=== PATIENT | female | born 1975 | race Caucasian/White ===

== ENCOUNTER → 2021-02-20 08:20 | Outpatient (CLI) | payer OTHER, SELFPAY ==
[2021-02-20 19:00] LABS: SARS-CoV-2 RNA PCR Negative
== END ==
PROVIDERS: PCP Internal Medicine; Visit Provider Internal Medicine
DX: Z20.822 Contact with and (suspected) exposure to COVID-19 (principal)
CPT/HCPCS: C9803; U0003; U0005

== ENCOUNTER 2021-02-20 11:19 | Outpatient (CLI) | payer OTHER, SELFPAY ==
--- NOTE | ~2021-02-20 | XR_ITS ---
XR chest 2V 02/20/2021 11:46 Indication: Shortness of breath. Cough. Low-grade fever. Procedure: 2 view chest Comparison: No prior studies for comparison. Findings: Bibasilar airspace disease may represent atelectasis or pneumonia. The lungs are hyperinfla iván which is consistent with, but not diagnostic of chronic obstructive pulmonary disease. Heart size normal. No edema or pneumothorax. Impression: 1: Bibasilar infiltrates posteriorly, best seen on lateral view, atelectasis versus developing pneumo karrie. Reviewed, dictated and finalized at location A. Impression: 1: Bibasilar infiltrates posteriorly, best seen on lateral view, atelectasis ve rsus developing pneumonia.
== END 2021-02-20 11:20 | disposition home or self-care (01) ==
LOC: ANHIMG 11:26
PROVIDERS: PCP Internal Medicine; Visit Provider Internal Medicine
DX: R06.02 Shortness of breath (principal)
CPT/HCPCS: 71046

== ENCOUNTER → 2021-05-10 08:34 | Outpatient (CLI) | payer OTHER, SELFPAY ==
[2021-05-10 13:15] LABS: Influenza Control Positive
[2021-05-10 20:25] LABS: SARS-CoV-2 RNA PCR Negative
== END ==
PROVIDERS: PCP Internal Medicine; Visit Provider Internal Medicine
DX: R09.89 Other specified symptoms and signs involving the circulatory and respiratory systems (principal); Z20.822 Contact with and (suspected) exposure to COVID-19
CPT/HCPCS: 87804; C9803; U0003; U0005

== ENCOUNTER → 2021-05-29 09:18 | Outpatient (CLI) | payer OTHER, SELFPAY ==
[2021-05-29 19:04] LABS: SARS-CoV-2 RNA PCR Negative
== END ==
PROVIDERS: PCP Internal Medicine; Visit Provider Nurse Practitioner
DX: R68.89 Other general symptoms and signs (principal); Z20.822 Contact with and (suspected) exposure to COVID-19
CPT/HCPCS: C9803; U0003; U0005

== ENCOUNTER → 2021-06-12 10:42 | Outpatient (CLI) | payer OTHER, SELFPAY ==
[2021-06-12 20:23] LABS: SARS-CoV-2 RNA PCR Positive
== END ==
PROVIDERS: PCP Internal Medicine; Visit Provider Internal Medicine
DX: U07.1 COVID-19 (principal)
CPT/HCPCS: C9803; U0003; U0005

== ENCOUNTER 2021-07-22 09:52 | Outpatient (CLI) | payer OTHER, SELFPAY ==
--- NOTE | ~2021-07-22 | MM_ITS ---
EXAMINATION: MM screening [facility] BI w lázaro HISTORY: Screening mammogram TECHNIQUE: Craniocaudal and mediolateral oblique 3-D tomosynthesis images were obtained and synthetic 2-D images were generated. Bilateral rotated lateral cc views. CAD analysis was submitted and interp reted. COMPARISON: 03/2019 bilateral screening mammogram BREAST PARENCHYMAL COMPOSITION: The breasts are heterogeneously dense, which may obscure small masses . FINDINGS: A 4.5 mm circumscribed opacity is noted in the posterior central mid left breast (ML Tomosy nthesis image 22/48). Diagnostic left mammogram and left breast ultrasound examination are recommende d. Otherwise there is no evidence of suspicious mass, calcification, or architectural distortion to sugg est malignancy in either breast. Occasional punctate benign appearing microcalcifications. There has been no other suspicious interval change. IMPRESSION: 1. 4.5 mm circumscribed mass is suggested in the posterior mid left breast 2. Diagnostic left mammogram and left breast ultrasound examination are recommended BI-RADS Category 0: Incomplete: Needs additional imaging evaluation. Reviewed, dictated and finalized at location A. IFIED LACTATION EDUCATOR IMPRESSION: 1. 4.5 mm circumscribed mass is suggested in the posterior mid left breast 2. Diagnostic left mammogram and left breast ultrasound examination are recomme nded BI-RADS Category 0: Incomplete: Needs additional imaging evaluation.
== END 2021-07-22 09:53 | disposition home or self-care (01) ==
LOC: ANHIMG 09:53
PROVIDERS: PCP Internal Medicine; Visit Provider Internal Medicine
DX: Z12.31 Encounter for screening mammogram for malignant neoplasm of breast (principal); R92.8 Other abnormal and inconclusive findings on diagnostic imaging of breast
CPT/HCPCS: 77063; 77067

== ENCOUNTER 2021-08-07 12:45 | Outpatient (CLI) | payer OTHER, SELFPAY ==
--- NOTE | ~2021-08-07 | MMUS_ITS ---
EXAMINATION: MM diagnostic [facility] LT w lázaro, US breast LT complete HISTORY: Follow-up left breast asymmetries TECHNIQUE: Additional 3-D tomosynthesis images of the left breast were performed and synthetic 2-D im ages were generated. CAD analysis was submitted and interpreted. High resolution complete left breast ultrasound was performed. COMPARISON: Comparison to multiple prior studies sequentially, with oldest reviewed study dated 03/06. BREAST PARENCHYMAL COMPOSITION: The breasts are heterogenously dense, which may obscure small masses. FINDINGS: MAMMOGRAPHIC FINDINGS: There are no suspicious masses, calcifications or architectural distortion in the left breast to sugg est malignancy. ULTRASOUND: Complete US of all 4 quadrants of the left breast and retroareolar region was reviewed. There are cys ts at 1:00 measuring 7 mm and 11:00 measuring 4 mm. Mildly prominent ducts noted. No suspicious cristino s to suggest malignancy. IMPRESSION: 1. No evidence for malignancy in the left breast. 2. Routine yearly screening mammogram and regular clinical breast examination are recommended. BI-RADS Category 2: Benign finding(s). Reviewed, dictated and finalized at location A. D SPECIALIST IMPRESSION: 1. No evidence for malignancy in the left breast. 2. Routine yearly screening mammogram and regular clinical breast examination a re recommended. BI-RADS Category 2: Benign finding(s).
== END 2021-08-07 12:46 | disposition home or self-care (01) ==
LOC: ANHIMG 12:46
PROVIDERS: PCP Internal Medicine; Visit Provider Internal Medicine
DX: R92.8 Other abnormal and inconclusive findings on diagnostic imaging of breast (principal); N60.02 Solitary cyst of left breast
CPT/HCPCS: 76641; 77061; 77065; G0279

== ENCOUNTER → 2022-07-26 14:30 | Outpatient (CLI) | payer OTHER, SELFPAY ==
--- NOTE | ~2022-07-26 | US_ITS ---
EXAMINATION: US pelvic complete w TV DATE: 07/26/2022 14:55 INDICATION: Pelvic pain Comparison:No prior studies for comparison. TECHNIQUE: Multiple transabdominal and endovaginal sonographic images of the pelvis performed. FINDINGS: The uterus measures 7.3 x 3.5 x 4.9 cm. The endometrial complex measures 5 mm. The right ovary measures 2 x 1.9 x 1.4 cm and the left ovary measures 2.2 x 1.7 x 1.4 cm. There are small follicles in each ovary. Normal doppler signal in both ovaries. There is no free fluid in the pelvis. There are no abnormal masses seen on either side. IMPRESSION: 1. Normal pelvic ultrasound. Reviewed, dictated and finalized at location A. 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
== END ==
PROVIDERS: PCP Registered Nurse; Visit Provider Registered Nurse
DX: R10.2 Pelvic and perineal pain (principal)
CPT/HCPCS: 76830; 76856

== ENCOUNTER 2022-09-26 14:30 | Outpatient (CLI) | payer OTHER, SELFPAY ==
--- NOTE | ~2022-09-26 | MM_ITS ---
EXAMINATION: MM screening [facility] BI w lázaro HISTORY: Screening mammogram TECHNIQUE: Craniocaudal and mediolateral oblique 3-D tomosynthesis images were obtained and synthetic 2-D images were generated. Bilateral rotated lateral CC views. ..CAD analysis was submitted and inte rpreted. COMPARISON: 08/07/2021 diagnostic left mammogram and complete left breast ultrasound BREAST PARENCHYMAL COMPOSITION: The breasts are heterogeneously dense, which may obscure small masses . FINDINGS: There is no evidence of suspicious mass, calcification, or architectural distortion to sugg est malignancy in either breast. There has been no suspicious interval change. IMPRESSION: 1. No mammographic evidence of malignancy. 2. Recommend routine screening mammography in one year. BI-RADS Category 1: Negative Reviewed, dictated and finalized at location A.
== END 2022-09-26 14:31 | disposition home or self-care (01) ==
LOC: ANHIMG 14:31
PROVIDERS: PCP Registered Nurse; Visit Provider Registered Nurse
DX: Z12.31 Encounter for screening mammogram for malignant neoplasm of breast (principal)
CPT/HCPCS: 77063; 77067

== ENCOUNTER 2024-03-19 15:25 | Outpatient (CLI) | payer OTHER, SELFPAY ==
--- NOTE | ~2024-03-19 | XR_ITS ---
EXAMINATION: XR chest 2V 03/19/2024 15:53 INDICATION: Cough PROCEDURE: 2 view chest COMPARISON: 02/20/2021 FINDINGS: The lungs are clear. The cardiomediastinal silhouette is within normal limits. There are no pleural effusions. There is no pneumothorax suspected. IMPRESSION: 1: NO ACUTE CARDIOPULMONARY DISEASE. Reviewed, dictated and finalized at location B.
== END 2024-03-19 15:26 | disposition home or self-care (01) ==
LOC: ANHIMG 15:27
PROVIDERS: PCP Nurse Practitioner Family; Visit Provider Nurse Practitioner Family
DX: R05.9 Cough, unspecified (principal)
CPT/HCPCS: 71046

== ENCOUNTER 2024-11-25 15:13 | Outpatient (CLI) | payer OTHER, SELFPAY ==
--- NOTE | ~2024-11-25 | MM_ITS ---
EXAMINATION: MM screening [facility] BI w lázaro HISTORY: Screening mammogram TECHNIQUE: Craniocaudal and mediolateral oblique 3-D tomosynthesis images were obtained and synthetic 2-D images were generated. CAD analysis was submitted and interpreted. COMPARISON: 09/26/2022, 07/22/2021, 03/06/2019 BREAST PARENCHYMAL COMPOSITION:Dense: The breasts are heterogeneously dense, which may obscure small masses. FINDINGS: There is a asymmetry in the subareolar right breast on CC view. No parenchymal abnormality of the left breast seen. No suspicious microcalcifications. IMPRESSION: Right subareolar breast asymmetry on CC view. Spot compression view, and possibly ultrasound, recomme nded for further evaluation. BI-RADS Category 0: Incomplete: Needs additional imaging evaluation. Reviewed, dictated and finalized at [facility]. IMPRESSION: Right subareolar breast asymmetry on CC view. Spot compression view, and possib ly ultrasound, recommended for further evaluation. BI-RADS Category 0: Incomplete: Needs additional imaging evaluation.
== END 2024-11-25 15:14 | disposition home or self-care (01) ==
LOC: ANHIMG 15:17
PROVIDERS: PCP Nurse Practitioner Family; Visit Provider Nurse Practitioner Family
DX: Z12.31 Encounter for screening mammogram for malignant neoplasm of breast (principal); R92.8 Other abnormal and inconclusive findings on diagnostic imaging of breast
CPT/HCPCS: 77063; 77067

== ENCOUNTER 2024-12-21 12:11 | Outpatient (CLI) | payer OTHER, SELFPAY ==
--- NOTE | ~2024-12-21 | US_ITS ---
EXAMINATION: MM diagnostic [place] RT w lázaro and US breast RT limited INDICATION: 49-year old female; BI-RADS 0, callback to evaluate right subareolar asymmetry. COMPARISON: 11/25/2024 TECHNIQUE: Digital breast tomosynthesis True lateral and CC and MLO views of the RIGHT breast were ob tained with computer-aided detection to assist in interpretation of the study. MAMMOGRAM FINDINGS: The breasts are heterogeneously dense, which may obscure small masses. The asymmetry of concern in the subareolar region partially persists on spot compression views. Ultra sound was obtained for further evaluation. RIGHT BREAST ULTRASOUND FINDINGS: Targeted evaluation of the subareolar location was completed. There are normal appearing fluid filled prominent ducts seen. No suspicious solid or cystic mass. IMPRESSION: No mammographic or sonographic evidence of breast malignancy. RECOMMENDATION: Routine annual screening mammography in one year BI-RADS Category 2: Benign finding(s). Reviewed, dictated and finalized at location B.
--- NOTE | ~2024-12-21 | MM_ITS ---
EXAMINATION: MM diagnostic [place] RT w lázaro and US breast RT limited INDICATION: 49-year old female; BI-RADS 0, callback to evaluate right subareolar asymmetry. COMPARISON: 11/25/2024 TECHNIQUE: Digital breast tomosynthesis True lateral and CC and MLO views of the RIGHT breast were ob tained with computer-aided detection to assist in interpretation of the study. MAMMOGRAM FINDINGS: The breasts are heterogeneously dense, which may obscure small masses. The asymmetry of concern in the subareolar region partially persists on spot compression views. Ultra sound was obtained for further evaluation. RIGHT BREAST ULTRASOUND FINDINGS: Targeted evaluation of the subareolar location was completed. There are normal appearing fluid filled prominent ducts seen. No suspicious solid or cystic mass. IMPRESSION: No mammographic or sonographic evidence of breast malignancy. RECOMMENDATION: Routine annual screening mammography in one year BI-RADS Category 2: Benign finding(s). Reviewed, dictated and finalized at location B.
--- OUTSIDE RECORDS SUMMARY | 2024-12-21 12:13 | XMS_ITS | Patient Health Record ---
Author Organization [facility] [employer] Address [address] [place] [address] Care Team Providers Care Real Estate Transaction Manager Name Role Phone Leyla Palmer APRN Primary Care Provider Nova Hoyos Unavailable [phone] Allergies Allergen (clinical drug ingredient) Drug/Non Drug Allergy documented on EMR Reaction Allergy Type Onset Date Status bupropion Bupropion Unknown Drug Allergy 10/11/2023 Active Reason For Referral No Information Medications Medication SIG (Take, Route, Frequency, Duration) Notes Start Date End Date Status Levothyroxine Sodium 100 MCG Oral 10/11/2023 Unknown Rosuvastatin Calcium 5 MG Oral 10/11/2023 Unknown Lisinopril 20 MG Oral 10/11/2023 Un known Gabapentin 600 MG Oral 10/11/2023 U nknown Sertraline HCl 25 MG Oral Active traZODone HCl 50 MG 1 tablet at bedtime as needed Orally Once a day; Duration: 90 days Active LORazepam 1 MG 1 tablet Oral three times a day; Duration: 30 days As needed 12/16/2024 Active Social History Tobacco Use: Social History Observation Description Date Details (start date - stop date) Current Smoker NA - NA Sex Assigned At : Social History Observation Description Sex Assigned At Female Tobacco Control (Standard) Question Answer Notes Tobacco use: Current smoker How often do you smoke cigarettes? Every day How many cigarettes a day do you smoke? 11-20 How soon after you wake up do you smoke your fir st cigarette? Within 5 minutes Are you interested in quitting? Not ready to jesus manuel t Problems Problem Type SNOMED Code ICD Code Onset Dates Problem Status W/U Status Risk Notes Problem Generalized anxiety disorder (26112812) Generalized anxiety disorder (F41.1) Active confirmed Encounters Encounter Location Date Provider Diagnosis [facility] [address] [address] 06/12/2024 Nova Kurnaseem Generalized anxiety disorder F41.1 [place] [address] [address] 12/30/2023 Nova Kurilla [place] [address] [address] 10/19/2024 Nova Kurilla Generalized anxiety disorder F41.1 [facility] [address] [place] [address] [address] [facility] [address] [place] [address] 12/01/2024 Nova Kurnaseem Generalized anxiety disorder F41.[address] [address] 12/16/2024 Nova Kurnaseem Generalized anxiety disorder F41.[address] [address] 10/19/2024 Nova Kurilla Generalized anxiety disorder F41.1 Assessments Encounter Date Diagnosis (ICD Code) Assessment Notes Treatment Notes Treatment Clinical Notes Section Notes 06/12/2024 Generalized anxiety disorder (ICD-10 - F41.1) Discussed and educated pt regarding benzodiazepines are generally not intended for prolonged use and that use can cause tolerance, dependence, depression, and associated memory issues including dementias (this list is not exhaustive). Benzodiazepine use is generally not recommended concurrently with pain medications and/or other controlled substances due to increased risks of profound sedation, respiratory depression, coma, and even . They are not to be used with any alcohol, as this combination can be lethal. 10/19/2024 Generalized anxiety disorder (ICD-10 - F41.1) 10/19/2024 Generalized anxiety disorder (ICD-10 - F41.1) 12/01/2024 Generalized anxiety disorder (ICD-10 - F41.1) 12/16/2024 Generalized anxiety disorder (ICD-10 - F41.1) 06/12/2024 Other Increase lorazepam to TID PRN due to recent stressors triggering increased anxiety, discussed this is a temporary medication adjustment and plan to decrease in the future. Patient educated on all medications including potential benefits, side effects, risks. Educated on proper dosing schedule and importance of compliance. [place] PDMP report checked and consistent with prescription history, no controlled substance prescriptions from other providers. Discussed plan to move out of house in October, educated restraining order may be appropriate for her safety. Womens fpc resource list provided. Plan Of Treatment Next Appt Details Provider Name:Nova Dean padilla, 01/01/2025 03:15:00 PM, [address], [place], [address], Insurance Providers Payer Name Payer Address Payer Phone Subscriber Number Group Number Insured Name Patient Relationship to Insured Coverage Start Date Coverage End Date [employer] Pos Ii [address] [place] [phone] [id number] [employer] Self - patient is the insured Medical (General) History Surgical History Surgery Date(Month/Year) Tonsilectomy/adenoids 11/05/1989
--- OUTSIDE RECORDS SUMMARY | 2024-12-21 12:13 | XMS_ITS | Encounter Summary ---
Author Organization [facility] Address [address] [place] [address] Care Team Providers Care Calibration Technician Name Role Phone Berto Barboza MD Primary Care Provider [phone] Encounter Details Date Type Department Care Team (Late st Contact Info) Description 01/31/2023 Lab Requisition [facility] - DermPath Lab [address] [facility] [facility] [place] [id number] Manjinder Gomez MD [address] [place] [address] Social History Tobacco Use Types Packs/Day Years Used Date Smoking Tobacco: Never Assessed Comments Unknown Sex and Gender Information Value Date Recorded Sex Assigned at Not on file 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 Gender Identity Not on file Sexual Orientation Not on file documented as of this encounter Plan of Treatment Not on file documented as of this encounter Procedures Procedure Name Priority Date/Time Associated Diagnosis Comments DERMATOPATHOLOGY Routine 01/30/2023 3:33 AM CDT documented in this encounter Results * DERMATOPATHOLOGY (01/30/2023 3:33 AM CDT) Case Report Dermatopathology Report Case: [id number] Authorizing Provider: Manjinder Gomez MD Collected: 01/30/2023 03:33 AM Ordering Location: [facility] DermPath Lab Received: 02/01/2023 06:29 AM Pathologist: Suzi Dorsey MD Specimen: Skin, right knee 3:17 PM CDT DERMATOPATHOLOGY LABORATORY Final Diagnosis Specimen A. SKIN, right knee: EPIDERMOID CYST WITH EVIDENCE OF RUPTURE (L72.0) PRESENT AT MARGIN 3 3:17 PM T DERMATOPATHOLOGY LABORATORY at 1517 CDT Clinical History Epidermoid cyst Path#[id number] Check margins 3 3:17 PM [facility] DERMATOPATHOLOGY LABORATORY Gross Description Specimen A: Received is one formalin filled container labeled with the patient's name and designated right knee. The specimen consists of a 50x62p3 mm piece of skin. The specimen is serially sectioned and a business services sales representative section is submitted in 2 cassettes. Jar 0. 3 3:17 PM [facility] DERMATOPATHOLOGY LABORATORY Microscopic Description Specimen A. SKIN, right knee: Within the dermis, there is a space lined by epithelium that resembles normal epidermis and the infundibular portion of the hair follicle. Surrounding this is an infiltrate with neutrophils, histiocytes, and multinucleated giant cells. This lesion is present at the margin of the specimen. 3 3:17 PM [facility] DERMATOPATHOLOGY LABORATORY Disclaimer An external and internal positive and negative controls are appropriate for the histochemical, immunohistochemical and immunofluorescence stain(s) in this case (if any), except where stated explicitly. The performance characteristics of the stain(s) cited in this report were developed and its performance characteristic determined by the Dermatopathology Laboratory at [facility], directed by Dr. Hadley Jc. These tests need not be, and therefore are not, approved by the [place] Food and Drug Administration. The tests are used for clinical purposes. Billing Codes Specimen Charges Stain Charges 45040 1 3 3:17 PM CDT DERMATOPATHOLOGY LABORATORY Embedded Images 3 3:17 PM CDT DERMATOPATHOLOGY LABORATORY Pathology/Cytolo gy TISSUE SPECIMEN FROM SKIN / Unknown 01/30/2023 3:33 AM CDT 02/01/2023 6:29 AM CDT us Manjinder Gomez MD LAB - PATHOLOGY/CYTOLOGY ORDER NANDO Final Result DERMATOPATHOLOGY LABORATORY [facility] - Department of Dermatology [address] [place], [place] [id number] [place] [address] documented in this encounter Visit Diagnoses Not on filedocumented in this encounter Care Teams Calibration Technician Relationship Specialty Start Date End Date Berto Barboza MD [address] [place] [phone] PCP - General Internal Medicine 04/14/21 documented as of this encounter
--- OUTSIDE RECORDS SUMMARY | 2024-12-21 12:13 | XMS_ITS | Clinical Summary ---
Author Organization [facility] Address [address] [place] [address] Care Team Providers Care Glue Drier Operator Name Role Phone Unavailable Primary Care Provider Unavailabl e Social History Tobacco Use Types Packs/Day Years Used Date Smoking Tobacco: Never Assessed Comments Unknown Sex and Gender Information Value Date Recorded Sex Assigned at Not on file Legal Sex Female 11:52 AM CLINICAL ADVISOR Gender Identity Not on file Sexual Orientation Not on file Plan of Treatment Health Maintenance Due Date Last Done Comments Hepatitis C Virus (HCV) Screening 1977 Hepatitis B Immunization (1 of 3 - 19+ 3-dose series) 1996 Pap Smear 1998 Cervical Cancer Screening (CCS) 2007 HPV/Cotest 2007 Discussion re Starting/Frequ ency of Mammograms 2017 Colonoscopy 2022 Colorectal Cancer Screening 2022 Influenza Immunization (#1) 2024 SARS-COV-2 Immunization ( season) 2024 Respiratory Syncytial Virus (RSV) Immunization (Adult) (1 - 1-dose 75+ series) 2052 DTaP/Tdap/Td Immunization Discontinued 06/03/2012 TdaP Immunization Completed 06/03/2012 Meningococcal Immunization (ACWY) Aged Out No longer eligible based on patient's age to complete this topic Pneumococcal Immunization Combined Aged Out No longer eligible b ased on patient's age to complete this topic Rotavirus Immunization Aged Out No lo nger eligible based on patient's age to complete this topic
--- OUTSIDE RECORDS SUMMARY | 2024-12-21 12:13 | XMS_ITS | Clinical Summary ---
Author Organization [facility] Address [address] [place] [address] Care Team Providers Care High School Industrial Arts Teacher Name Role Phone Berto Barboza MD Primary Care Provider [phone] Source Comments [facility],non-owned Affiliates and Associated Physician Practices is amultiple site organization consisting of ambulatory clinics and hospital sitesin [place], [place], [place] and [place]. This disclosure is being madepursuant to the Care Everywhere program and may not contain all information available regarding this patient. Last updated 18.[facility] Allergies No known active allergies Immunizations Immunization Administration Dates Next Due INFLUENZA VACCINE, QUADR. 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 Gender Identity Not on file Sexual Orientation Not on file Plan of Treatment Health Maintenance Due Date Last Done Comments COLOGUARD (AGES 45-75) - COL ON CA SCREENING 1977 COLON MONITORING 1977 COLONOSCOPY - COLON CA SCREENING 1977 CT COLONOGRAPHY - COLON CA SCREENING 1977 Colorectal Cancer Screening 1977 FIT - COLON CA SCREENING 1977 FLEX SIG - COLON CA SCREENING 1977 LIPID TESTING 1977 MAMMOGRAM 1977 HIV SCREENING 1992 HEPATITIS C SCREENING 05/22/1995 DTAP/TDAP/TD VACCINES (1 - Tdap) 1996 HEPATITIS B VACCINE (1 of 3 - 19+ 3-dose series) 1996 PAP SMEAR 1998 COVID-19 VACCINE (3 - 2023-2 5 season) 2024 09/02/2020, 08/12/2020 DEPRESSION SCREENING 06/03/2024 INFLUENZA VACCINE (#1) 2025 04/14/2021 ZOSTER VACCINE (1 of 2) 2027 HIB VACCINE Aged Out No longer eligi ble based on patient's age to complete this topic HPV VACCINE Aged Out No longer eligi ble based on patient's age to complete this topic MENINGOCOCCAL (Group B) VACCINE SHARED DECISION-MAKING Aged Out No longer eligible based on patient's age to complete this topic MENINGOCOCCAL GROUPS A/C/Y/W VACCINE Aged Out No longer eligible b ased on patient's age to complete this topic PNEUMOCOCCAL VACCINE Aged Out No long er eligible based on patient's age to complete this topic Insurance A[employer]NA Care Teams High School Industrial Arts Teacher Relationship Specialty Start Date End Date Berto Barboza MD [address] [place] [phone] PCP - General Internal Medicine 04/14/21
== END 2024-12-21 12:12 | disposition home or self-care (01) ==
LOC: ANHIMG 12:12
PROVIDERS: PCP Nurse Practitioner Family; Visit Provider Nurse Practitioner Family
DX: R92.8 Other abnormal and inconclusive findings on diagnostic imaging of breast (principal)
CPT/HCPCS: 76642; 77061; 77065; G0279